=== PATIENT | female | born 1985 | race Two or more races ===

== ENCOUNTER 2017-10-01 21:28 | Emergency (ER) | payer OTHER ==
--- NOTE | 2017-10-02 00:12 | NUR ---
CALLED FOR TRIAGE X3; NOT IN LOBBY
== END 2017-10-02 00:19 | disposition left against medical advice (07) ==
LOC: ER 21:36
DX: Z53.21 Procedure and treatment not carried out due to patient leaving prior to being seen by health care provider (principal)